=== PATIENT | female | born 1970 | race Caucasian/White ===

== ENCOUNTER 2016-12-01 21:00 | Emergency (ER) | payer OTHER ==
[~2016-12-01] VITALS: Ht 165.1 cm; Wt 120.7 kg
[~2016-12-01 21:00] MED LIST: METF-200 PO
[2016-12-01 21:05] VITALS: BP 172/98; PULSE 72; RESP 18; TEMP 98.5; O2SAT 98; Ht 165.1 cm; Wt 120.7 kg
--- OUTSIDE RECORDS SUMMARY | 2016-12-01 21:10 | XMS REPORT | Continuity of Care Document ---
[facility] Address Unknown Phone Unavailable Allergies Active Description Code Type Severity Reaction Onset Reported/Identified Relationship to Patient Clinical Status Yes No Known Drug Allergies [id number] Drug Allergy Unknown N/ A 02/27/2014 Yes Penicillins [id number] Drug Allergy Unknown N/A 09/08/2014 Medications Problems Date Dx Coded Attending Type Code Diagnosis Diagnosed By 02/27/2014 NAKUL BURRELL MD Ot 786.50 CHEST PAIN NOS 02/27/2014 NAKUL BURRELL MD Ot 786.59 CHEST PAIN NEC 09/08/2014 SABINA POWELL DO Ot 250.02 DIAB BRIAN WO COMPL, TYPE II OR UNSPEC TY 09/08/2014 SABINA POWELL DO Ot 780.4 DIZZINESS AND GIDDINESS 09/19/2014 HOSSEIN CARR DO Ot 719.46 JOINT PAIN-L/LEG 11/22/2016 HOSSEIN CARR DO Ot G58.8 OTHER SPECIFIED MONONEUROPATHIES 11/22/2016 HOSSEIN CARR DO Ot M19.031 PRIMARY OSTEOARTHRITIS, RIGHT WRIST 11/22/2016 HOSSEIN CARR DO Ot M25.531 PAIN IN RIGHT WRIST 11/22/2016 HOSSEIN CARR DO Ot M79.641 PAIN IN RIGHT HAND 11/27/2016 HOSSEIN CARR DO Ot G58.8 OTHER SPECIFIED MONONEUROPATHIES 11/27/2016 HOSSEIN CARR DO Ot M19.031 PRIMARY OSTEOARTHRITIS, RIGHT WRIST 11/27/2016 HOSSEIN CARR DO Ot M25.531 PAIN IN RIGHT WRIST 11/27/2016 HOSSEIN CARR DO Ot M79.641 PAIN IN RIGHT HAND 11/29/2016 HOSSEIN CARR DO Ot G58.8 OTHER SPECIFIED MONONEUROPATHIES 11/29/2016 HOSSEIN CARR DO Ot M19.031 PRIMARY OSTEOARTHRITIS, RIGHT WRIST 11/29/2016 HOSSEIN CARR DO Ot M25.531 PAIN IN RIGHT WRIST 11/29/2016 HOSSEIN CARR DO, Ot M79.641 PAIN IN RIGHT HAND Procedures Results Test Result Range Complete blood count (CBC) with automated white blood cell (WBC) differential - 11/22/16 08:10 Blood automated leukocyte count 7.72 4.0 -11.0 Erythrocytes 4.73 4.00-5.00 12.0-16.0;g/dL 13.4 12.0-15.5 Hematocrit 38.20 35.00-45.00 Automated erythrocyte mean corpuscular volume 81 80-100 Mean corpuscular hemoglobin (MCH) determination 28.3 26.0-34.0 Automated erythrocyte mean corpuscular hemoglobin concentration measurement ( mass/volume) 35.1 31.0-37.0 Erythrocyte distribution width 13.5 11.8 -15.6 Automated blood platelet count 260 150- 450 Automated blood platelet mean volume measurement 9.0 6.0-9.5 Automated neutrophil percentage 64 51- 67 Lymphocytes/100 leukocytes 27 20-46 Automated monocyte percentage 8 3-11 Eosinophil count auto 1 0-4 Automated basophil percentage 0 0-2 Automated blood neutrophil count 5.0 Blood lymphocytes count (number/volume) 2.1 Automated blood monocyte count 0.6 Blood absolute eosinophil count 0.1 Basophils 0.0 Comprehensive metabolic panel - 11/22/16 08:10 Sodium measurement 277 70-110 CARBON DIOXIDE 25 22-29 Serum or plasma anion gap 11.5 3-15 BLOOD UREA NITROGEN 13 7-18 CREATININE SERUM 0.52 0.6-1.2 Brucella species antibody panel (IgG, IgM) 25 10-20 Estimated glomerular filtration rate (GFR) 155.0 Estimated glomerular filtration rate (GFR) non- 128.1 OSMOLALITY,CALCULATED 277 280-300 CALCIUM 9.0 8.8-10.8 Calculated ionized calcium measurement 3.8 3.8-4.6 BILIRUBIN,TOTAL 1.0 0.1-1.0 Serum or plasma alkaline phosphatase measurement 129 38-126 ASPARTATE AMINO TRANSFERASE 17 15-37 ALANINE AMINOTRANSFERASE 33 30-65 Serum or plasma total protein measurement 7.6 6.4-8.5 Serum or plasma albumin measurement 3.7 3.4-5.0 Serum or plasma albumin/globulin mass ratio 0.948 1.1-1.8 URIC ACID - 11/22/16 08:10 URIC ACID 4.5 2.6-5.6 C REACTIVE PROTEIN* - 11/22/16 08:10 C REACTIVE PROTEIN* 1.60 0.0-0.9 Serum or plasma rheumatoid factor measurement (units/volume) - 11/22/16 08:10 Serum or plasma rheumatoid factor measurement (units/volume) < 0-29 Encounters ACCT No. Visit Date/Time Discharge Status Pt. Type Provider Facility Loc./Unit Complaint [id number] 11/22/2016 07:37:00 2016 09:35:00 DIS Outpatient [facility] ED [id number] 09/19/2014 15:30:00 2013 17:25:00 DIS Emergency [facility] ED [id number] 09/08/2014 07:06:00 2013 08:37:00 DIS Emergency ANDRE SMITH [facility] ED [id number] 02/27/2014 18:51:00 2013 22:36:00 DIS Emergency ASHANTI STRINGER, [facility] ED
--- OUTSIDE RECORDS SUMMARY | 2016-12-01 21:10 | XMS REPORT | CCD ---
Author Author SREEKANTH MEYERS Organization Unknown Address [address], [place] [id number] Phone 0 Care Team Providers Care Enterprise Resource Planner Name Role Phone JOHN RASCON Attending Physician [phone] Vital Signs Unknown or Not Available. Allergies Allergy Code Allergy Type Reaction Status No Known Drug Allergies 0 No known drug allergies Active Procedures Unknown or Not Available. History of Immunizations Unknown or Not Available. Problems Unknown or Not Available. Results COMP METABOLIC - Collect Date/Time: 09/06/2015 08:20 Test Name Code Test Result Test Units Test Ref Range GLUCOSE 166 mg/dL L=70 H=110 BUN 11 mg/dL L=7 H=18 CREATININE 0.70 mg/ dL L=0.60 H=1.30 AGE 45 YEARS GFR 97.1 SODIUM 135 mmol/L L=136 H=145 POTASSIUM 4.0 mmol/ L L=3.5 H=5.1 CHLORIDE 101 mmol/L L=98 H=107 CO2 27 mmol/L L=21 H=32 CALCIUM 8.9 mg/dL L=8.5 H=10.1 AST 9 U/L L=15 H=37 ALT 26 U/L L=12 H=78 ALKALINE PHOS 109 U/ L L=50 H=136 TOTAL PROTEIN 7.9 g/ dL L=6.4 H=8.2 ALBUMIN 3.4 g/dL L=3.4 H=5.0 TOTAL BILI 0.70 mg/ dL L=0.00 H=1.00 LIPID PANEL - Collect Date/Time: 09/06/2015 08:20 Test Name Code Test Result Test Units Test Ref Range CHOLESTEROL 188 mg/ dL L=0 H=200 TRIGLYCERIDES 154 mg /dL L=30 H=150 HDL 33 mg/dL L=50 H=60 LDL, CALC 124 mg/dL L=0 H=100 VLDL 31 mg/dL L=0 H=40 CHOL/HDL RISK 5.7 RATIO L=0.0 H=4.4 PT FASTING: YES N/A Active Medications Unknown or Not Available. Medications Administered During Visit Unknown or Not Available. Encounters Unknown or Not Available. Social History Smoking Status Code Start Date End Date Former smoker [id number] Patient Decision Aids Unknown or Not Available. Discharge Instructions You were admitted to [facility] on 09/06/2015. You were discharged from [facility] on 09/06/2015. Should you have any questions prior to discharge, please contact a member of your healthcare team. If you have left the hospital and have any questions, please contact your primary care physician. Chief Complaint and Reason For Visit Unknown or Not Available. Function Status Unknown or Not Available. Plan of Care Unknown or Not Available. Referral/Transition of Care Unknown or Not Available.
--- OUTSIDE RECORDS SUMMARY | 2016-12-01 21:10 | XMS REPORT | CCD ---
Author Author SREEKANTH MEYERS Organization Unknown Address [address], [place] [id number] Phone 0 Care Team Providers Care Brim And Crown Presser Name Role Phone JOHN RASCON Attending Physician [phone] Vital Signs Unknown or Not Available. Allergies Allergy Code Allergy Type Reaction Status No Known Drug Allergies 0 No known drug allergies Active Procedures Unknown or Not Available. History of Immunizations Unknown or Not Available. Problems Unknown or Not Available. Results HGB A1C - Collect Date/Time: 12/07/2015 14:10 Test Name Code Test Result Test Units Test Ref Range HGB A1C 6.1 % L=4.5 H=6.2 eAG 128 mg/dL Active Medications Unknown or Not Available. Medications Administered During Visit Unknown or Not Available. Encounters Encounter Diagnosis Diagnosis Code Start Date Type 2 diabetes mellitus with hyperglycemia E1165 12/07/2015 Social History Smoking Status Code Start Date End Date Former smoker [id number] Patient Decision Aids Unknown or Not Available. Discharge Instructions You were admitted to [facility] on 12/07/2015 14:05 with a principal diagnosis of Type 2 diabetes mellitus with hyperglycemia You had the following tests done: HGB A1C You were discharged from [facility] on 12/07/2015 14:05 Should you have any questions prior to discharge, please contact a member of your healthcare team. If you have left the hospital and have any questions, please contact your primary care physician. Chief Complaint and Reason For Visit Chief Complaint Date of Onset LAB Function Status Unknown or Not Available. Plan of Care Unknown or Not Available. Referral/Transition of Care Unknown or Not Available.
--- OUTSIDE RECORDS SUMMARY | 2016-12-01 21:10 | XMS REPORT | CCD ---
Author Author SREEKANTH MEYERS Organization Unknown Address [address] [place], [place] [address] Phone 0 Care Team Providers Care Ui Application Developer Name Role Phone KELLIE CHERRY Attending Physician 0 Vital Signs Unknown or Not Available. Allergies Allergy Code Allergy Type Reaction Status No Known Drug Allergies 0 No known drug allergies Active Procedures Unknown or Not Available. History of Immunizations Unknown or Not Available. Problems Unknown or Not Available. Results BASIC METABOLIC - Collect Date/Time: 02/22/2016 10:38 Test Name Code Test Result Test Units Test Ref Range GLUCOSE 197 mg/dL L=70 H=110 BUN 12 mg/dL L=7 H=18 CREATININE 0.71 mg/ dL L=0.60 H=1.30 AGE 45 YEARS GFR 89.8 SODIUM 135 mmol/L L=136 H=145 POTASSIUM 3.8 mmol/ L L=3.5 H=5.1 CHLORIDE 101 mmol/L L=98 H=107 CO2 27 mmol/L L=21 H=32 CALCIUM 9.0 mg/dL L=8.5 H=10.1 HGB A1C - Collect Date/Time: 02/22/2016 10:38 Test Name Code Test Result Test Units Test Ref Range HGB A1C 7.4 % L=4.5 H=6.2 eAG 166 mg/dL H. PYLORI IGG, RAPID - Collect Date/Time: 02/22/2016 10:38 Test Name Code Test Result Test Units Test Ref Range H. PYLORI IGG, RAPID NEGATIVE N/A NORMAL: NEGATIVE UA AUTO W/ MICRO - Collect Date/Time: 02/22/2016 10:40 Test Name Code Test Result Test Units Test Ref Range COLOR Yellow N/A NORMAL: Yellow APPEARANCE SlCloudy N/A NORMAL: Clear GLUCOSE 250 N/A NORMAL: Negative BILIRUBIN Negative N /A NORMAL: Negative KETONE Negative N/A NORMAL: Negative SPEC GRAVITY >=1.030 N/A NORMAL: 1.005-1.030 BLOOD Small N/A NORMAL: Negative PROTEIN 30 N/A NORMAL: Negative PH 5.0 N/A NORMAL: 5.0-8.0 UROBILINOGEN 0.2 N/ A NORMAL: Negative NITRITE Negative N/ A NORMAL: Negative LEUKOCYTES Negative N/A NORMAL: Negative MICRO RBC 2-5 N/A NORMAL: 0-2 MICRO WBC 5-10 N/A NORMAL: 0-2 BACTERIA 1+ N/A NORMAL: None-Trace EPI CELLS 15-30 N/A NORMAL: 0-15 MUCUS Small N/A NORMAL: None-Small AMORPHOUS None Seen N/A NORMAL: None Seen YEAST None Seen N/A NORMAL: None Seen CRYSTALS None Seen N /A NORMAL: None Seen CAST Hyaline C N/A NORMAL: None Seen URINE CULTURE? YES N /A CULTURE URINE - Collect Date/Time: 02/22/2016 10:40 Test Name Code Test Result Test Units Test Ref Range SPEC SOURCE: R N/A Urine Culture, Routine 630-4 Final report N/A Active Medications Unknown or Not Available. Medications Administered During Visit Unknown or Not Available. Encounters Encounter Diagnosis Diagnosis Code Start Date Type 2 diabetes mellitus without complications E119 02/22/2016 Social History Smoking Status Code Start Date End Date Former smoker [id number] Patient Decision Aids Unknown or Not Available. Discharge Instructions You were admitted to [facility] on 02/22/2016 10:30 with a principal diagnosis of Type 2 diabetes mellitus without complications You had the following tests done: BASIC METABOLIC CULTURE URINE H. PYLORI IGG, RAPID HGB A1C UA AUTO W/ MICRO You were discharged from [facility] on 02/22/2016 10:30 Should you have any questions prior to [...]
--- OUTSIDE RECORDS SUMMARY | 2016-12-01 21:10 | XMS REPORT | CCD ---
Author Author SREEKANTH MEYERS Organization Unknown Address [address], [place] [address] Phone 0 Care Team Providers Care Computer Meteorologist Name Role Phone JOHN RASCON Attending Physician [phone] Vital Signs Unknown or Not Available. Allergies Allergy Code Allergy Type Reaction Status No Known Drug Allergies 0 No known drug allergies Active Procedures Unknown or Not Available. History of Immunizations Unknown or Not Available. Problems Unknown or Not Available. Results COMP METABOLIC - Collect Date/Time: 03/07/2016 09:24 Test Name Code Test Result Test Units Test Ref Range GLUCOSE 212 mg/dL L=70 H=110 BUN 13 mg/dL L=7 H=18 CREATININE 0.70 mg/ dL L=0.60 H=1.30 AGE 45 YEARS GFR 91.3 SODIUM 135 mmol/L L=136 H=145 POTASSIUM 4.1 mmol/ L L=3.5 H=5.1 CHLORIDE 99 mmol/L L=98 H=107 CO2 26 mmol/L L=21 H=32 CALCIUM 9.0 mg/dL L=8.5 H=10.1 AST 15 U/L L=15 H=37 ALT 32 U/L L=12 H=78 ALKALINE PHOS 118 U/ L L=50 H=136 TOTAL PROTEIN 7.8 g/ dL L=6.4 H=8.2 ALBUMIN 3.1 g/dL L=3.4 H=5.0 TOTAL BILI 0.60 mg/ dL L=0.00 H=1.00 LIPID PANEL - Collect Date/Time: 03/07/2016 09:24 Test Name Code Test Result Test Units Test Ref Range CHOLESTEROL 190 mg/ dL L=0 H=200 TRIGLYCERIDES 111 mg /dL L=30 H=150 HDL 39 mg/dL L=50 H=60 LDL, CALC 129 mg/dL L=0 H=100 VLDL 22 mg/dL L=0 H=40 CHOL/HDL RISK 4.9 RATIO L=0.0 H=4.4 PT FASTING: YES N/A Active Medications Unknown or Not Available. Medications Administered During Visit Unknown or Not Available. Encounters Encounter Diagnosis Diagnosis Code Start Date Type 2 diabetes mellitus with hyperglycemia E1165 03/07/2016 Social History Smoking Status Code Start Date End Date Former smoker [id number] Patient Decision Aids Unknown or Not Available. Discharge Instructions You were admitted to [facility] on 03/07/2016 09:18 with a principal diagnosis of Type 2 diabetes mellitus with hyperglycemia You had the following tests done: COMP METABOLIC LIPID PANEL You were discharged from [facility] on 03/07/2016 09:18 Should you have any questions prior to [...]
--- OUTSIDE RECORDS SUMMARY | 2016-12-01 21:11 | XMS REPORT | Continuity of Care Document ---
Author Author [facility] Address Unknown Phone Unavailable Care Team Providers Care Facilities Plant Engineer Name Role Phone Enrrique Moralez Richard Primary Care Physician [phone] Insurance Providers Payer Name Policy Number Subscriber Name Relationship [facility] [id number] En Vasques 18 Self / Same As Patient Advance Directives Directive Response Recorded Date/Time Advanced Directives No 11/22/16 7:39am Chief Complaint and Reason for Visit Chief Complaint Pain Reason for Visit [id number] Neuritis of right ulnar nerve Problems Active Problems Medical Problem Onset Date Status Chest pain ~02/27/2014 Resolved Diabetes mellitus Unknown Chronic Dizzy Unknown Resolved Knee pain ~09/19/2014 Acute Neuritis of right ulnar nerve Unknown Acute Patellofemoral arthralgia of right knee ~09/19/2014 Acute Right wrist tendinitis Unknown Acute Vertigo Unknown Resolved Medications Current Home Medications Medication Dose Units Route Directions Days/Qty Instructions Start Date Naproxen Sodium 220 Mg 220 Mg ORAL As Needed 09/19/14 Meloxicam 15 Mg 15 Mg ORAL Daily 10 11/22/16 Past Home Medications Medication Directions Ordered Status Metformin Hcl (Glucophage) 500 Mg Tablet, 500 Mg Oral Twice A Day 02/27/14 Discontinued Meloxicam 15 Mg Tablet, 15 Mg Oral Daily 02/27/14 Discontinued Fluoxetine Hcl 20 Mg Capsule, 20 Mg Oral Daily 02/27/14 Discontinued Trazodone Hcl 50 Mg Tablet, 50 Mg Oral Bedtime 02/27/14 Discontinued Cetirizine Hcl 10 Mg Tab.chew, 10 Mg Oral Daily 02/27/14 Discontinued Omeprazole 10 Mg Capsule.dr, 10 Mg Oral Daily 02/27/14 Discontinued Ranitidine Hcl 150 Mg Tablet, 150 Mg Oral Bedtime 02/27/14 Discontinued Meclizine Hcl 25 Mg Tab.chew, 25 Mg Oral Three Times A Day 09/08/14 Discontinued Prednisone 20 Mg Tablet, 3 Tab Oral Daily 09/08/14 Discontinued Metformin Hcl (Glucophage) 500 Mg Tablet, 500 Mg Oral Twice A Day 09/08/14 Discontinued Tramadol Hcl (Ultram) 50 Mg Tablet, 50 Mg Oral Every 6 Hours as needed for Pain 09/19/14 Discontinued Social History Query Response Start Date Stop Date Smoking Status Former smoker Hospital Discharge Instructions No hospital discharge instructions. Plan of Care Discharge Date 11/22/16 9:35am Disposition 01 HOME OR SELF-CARE Condition at Discharge Stable Instructions/Education Provided Meloxicam Tendinopathy (DC) Forms Provided Return to Work Restrictions Prescriptions See Medication Section Referrals Enrrique Moralez - Additional Instructions/Education Wear the wrist splint for a few days as needed to protect and rest your right wrist, and after your pain has improved, you may try going without it. You may try wearing it to work to protect and support your wrist. The pain in your right fifth finger may be related to compression and inflammation of the ulnar nerve as it passes through your elbow, and may not improve with wearing a wrist splint. It may help to try to avoid applying any pressure to the right elbow, and even wearing a bulky pad over the elbow like a housing grant analyst's elbow pad which you could probably obtain at any sporting goods store. You are also being prescribed an anti-inflammatory medication to take for the next week. Follow-up with your doctor in the next week if you're not improving. You may need nerve conduction studies of the right ulnar nerve to see if it needs surgery. Some of your test results may not be complete prior to your leaving the Emergency Department. The Emergency Department is not authorized to give test results over the phone. Please contact the doctor's office listed in this packet of information for your final results. Follow up with your primary care physician or return to the Emergency Department for worsening or worrisome symptoms. * Emergency Department phone number: [phone], x [phone]* MEDICAL RECORD If you need copies of your X-rays, call [phone]. If you need copies of your medical record, including lab results, a signed authorization for release of records will be required. A telephone call for release of Health Information is not allowed. BILLING Billing can sometimes be confusing and frustrating. To help avoid confusion in the future, please take a moment to acquaint yourself with the billing parties for services. SERVICE BILLING [facility] Emergency Room Services [facility] Physician Services [facility] X-rays [facility] Patients will receive bills for services from the appropriate provider. If you have any questions about your [facility] bill, our staff will be happy to assist you. Please call [phone], and ask for the billing department. THANK YOU for choosing [facility] as your emergency care provider! Care Plan and Goals ~~Discharge Care Plan~~ Problem: Sprain, strain or fracture of extremity Goal: Extremity will be pink and warm to touch, with good movement of fingers or toes. Instructions: Apply ice bag and elevate extremity above the level of your heart. Monitor extremity for pink color to fingers or toes and movement. Call your physician if extremity becomes blue in color or cool to touch. Some swelling of fingers or toes is expected, continue to wiggle fingers and toes and keep elevated. Allow 24-48 hours for the splint to dry completely. Do not place splint on a hard surface to avoid a pressure area. Take medication(s) as directed. Follow up with Orthopedic or primary care physician as directed. Functional Status No functional status results. Allergies, Adverse Reactions, Alerts Allergen Type Severity Reaction Status Last Updated Penicillin Allergy Unknown Active 09/08/14 Immunizations Name Given Type Status Date Influenza Vaccine Received if Current 06/15/14 Historical Historical Vital Signs Acute Vital Signs Vital Response Date/Time Temperature (Fahrenheit) 97.7 11/22/2016 7:39am Pulse 72 bpm 11/22/2016 10:01am Respirations 16 11/22/2016 10:01am Height 5 ft 5 in Weight 262 lb Body Mass Index 43.0 kg/m^2 Results Laboratory Results Test Name Result Units Flags Reference Collection Date/Time Result Date/ Time Comments White Blood Count 7.72 10^3uL 4.0-11.0 11/22/2016 8:11/22/2016 8: 28am Red Blood Count 4.73 10^6uL 4.00-5.00 11/22/2016 8:11/22/2016 8: 28am Hemoglobin 13.4 g/dL 12.0-15.5 11/22/2016 8:11/22/2016 8:28am Hematocrit 38.20 % 35.00-45.00 11/22/2016 8:11/22/2016 8:28am Mean Corpuscular Volume 81 FL 80-100 11/22/2016 8:11/22/2016 8: 28am Mean Corpuscular Hemoglobin 28.3 PG 26.0-34.0 11/22/2016 8:2016 8:28am Mean Corpuscular Hemoglobin Concent 35.1 g/dL 31.0-37.0 11/22/2016 8: 11/22/2016 8:28am Red Cell Distribution Width 13.5 % 11.8-15.6 11/22/2016 8:2016 8:28am Platelet Count 260 10^3uL 150-450 11/22/2016 8:11/22/2016 8:28am Mean Platelet Volume 9.0 FL 6.0-9.5 11/22/2016 8:11/22/2016 8: 28am Neutrophils (%) (Auto) 64 % 51-67 11/22/2016 8:11/22/2016 8:28am Lymphocytes (%) (Auto) 27 % 20-46 11/22/2016 8:11/22/2016 8:28am Monocytes (%) (Auto) 8 % 3-11 11/22/2016 8:11/22/2016 8:28am Eosinophils (%) (Auto) 1 % 0-4 11/22/2016 8:10a11/22/2016 8:28am Basophils (%) (Auto) 0 % 0-2 11/22/2016 8:11/22/2016 8:28am Neutrophils # (Auto) 5.0 X10^3 11/22/2016 8:10a11/22/2016 8:28am Lymphocytes # (Auto) 2.1 X10^3 11/22/2016 8:11/22/2016 8:28am Monocytes # (Auto) 0.6 X10^3 11/22/2016 8:10a11/22/2016 8:28am Eosinophils # (Auto) 0.1 10^3uL 11/22/2016 8:10a11/22/2016 8:28am Basophils # (Auto) 0.0 10^3uL 11/22/2016 8:10a11/22/2016 8:28am Sodium Level 138 mmol/L 135-150 11/22/2016 8:10a11/22/2016 8:36am Potassium Level 4.0 mmol/L 3.5-5.1 11/22/2016 8:10a11/22/2016 8:36am Chloride Level 105 mmol/L 98-108 11/22/2016 8:10a11/22/2016 8:36am Carbon Dioxide Level 25 mmol/L -11/22/2016 8:10a11/22/2016 8: 36am Anion Gap 11.5 MEQ/L 3-15 11/22/2016 8:10a11/22/2016 8:36am Blood Urea Nitrogen 13 mg/dL # 7-18 11/22/2016 8:11/22/2016 8:36am Creatinine 0.52 mg/dL L 0.6-1.2 11/22/2016 8:10a11/22/2016 8:36am BUN/Creatinine Ratio 25 H 10-11/22/2016 8:10a11/22/2016 8:36am Estimat Glomerular Filtration Rate 155.0 11/22/2016 8:10a2016 8:36am Estimated GFR (Non- 128.1 11/22/2016 8:10a2016 8:36am Glucose Level 277 mg/dL # H 70-110 11/22/2016 8:11/22/2016 8:36am Calculated Osmolality 277 mosm/L L 280-300 11/22/2016 8:11/22/2016 8:36am Uric Acid 4.5 mg/dL 2.6-5.6 11/22/2016 8:11/22/2016 8:36am Calcium Level 9.0 mg/dL 8.8-10.8 11/22/2016 8:11/22/2016 8:36am Calcium/Ionized Calcium Ratio 3.8 mg/dL 3.8-4.6 11/22/2016 8:11/22 8:36am Total Bilirubin 1.0 mg/dL # 0.1-1.0 11/22/2016 8:11/22/2016 8:36am Alkaline Phosphatase 129 U/L H 38-126 11/22/2016 8:11/22/2016 8: 36am Aspartate Amino Transf (AST/SGOT) 17 U/L 15-37 11/22/2016 8:2016 8:36am Alanine Aminotransferase (ALT/SGPT) 33 U/L 30-65 11/22/2016 8: 8:36am Total Protein 7.6 g/dL 6.4-8.5 11/22/2016 8:11/22/2016 8:36am Albumin 3.7 g/dL 3.4-5.0 11/22/2016 8:11/22/2016 8:36am Albumin/Globulin Ratio 0.948 L 1.1-1.8 11/22/2016 8:11/22/2016 8: 36am C-Reactive Protein 1.60 mg/dL H 0.0-0.9 11/22/2016 8:11/22/2016 8: 36am Procedures No known history of procedures. Encounters Encounter Location Arrival/Admit Date Discharge/Depart Date Attending Provider Departed Emergency Room [facility] 11/22/16 7:37am 11/22/16 9:35am HOSSEIN CARR DO Recent Diagnosis
--- OUTSIDE RECORDS SUMMARY | 2016-12-01 21:11 | XMS REPORT | CCD ---
Author BISHOP Palm Organization Unknown Address [address], [place] [id number] Phone 0 Care Team Providers Care Punchboard Filling Machine Operator Name Role Phone Faisal COVARRUBIAS Attending Physician 0 SATISH A Primary Surgeon 0 Vital Signs Vital Sign Value Unit Date/Time Recent/Initial? Weight Measured 0 lbs 05/13/2015 19:46 Initial VS Height 65 in 2014 19:46 Initial VS BMI (Body Mass Index) 0 kg/m^2 05/13/2015 19:46 Initial VS BSA (Body Surface Area) 0 m^2 05/13/2015 19:46 Initial VS Allergies Allergy Code Allergy Type Reaction Status No Known Drug Allergies 0 No known drug allergies Active Procedures Unknown or Not Available. History of Immunizations Unknown or Not Available. Problems Unknown or Not Available. Results Unknown or Not Available. Active Medications Unknown or Not Available. Medications Administered During Visit Unknown or Not Available. Encounters Encounter Diagnosis Diagnosis Code Start Date INSECT BITE HIP & LEG 9164 05/13/2015 Social History Smoking Status Code Start Date End Date Former smoker [id number] Patient Decision Aids Unknown or Not Available. Discharge Instructions You were admitted to [facility] on 05/13/2015 with a principal diagnosis of INSECT BITE HIP & LEG. You were discharged from [facility] on 05/13/2015. Should you have any questions prior to discharge, please contact a member of your healthcare team. If you have left the hospital and have any questions, please contact your primary care physician. Chief Complaint and Reason For Visit Chief Complaint Date of Onset POSSIBLE BUG BITE LEFT LEG. 05/13/2015 Function Status Unknown or Not Available. Plan of Care Unknown or Not Available. Referral/Transition of Care Unknown or Not Available.
--- NOTE | 2016-12-01 21:36 | ERPDOC ---
Departure Disposition Decision Date: Dec 01, 2016 Disposition Decision Time: 22:00 Disposition: 01 DISCHARGED HOME, SELF-CARE Impression Impression Impression: Primary Impression: Right wrist pain Severity: Moderate Condition: Stable Seen By: Physician only Referrals: NATTY RASCON "JOHN" (Family) Follow-up for possible referral to orthopedist Patient Instructions: Carpal Tunnel Syndrome Exercises (GEN) Problems/Meds/Labs Reviewed?: Yes Medications reviewed and manag: Yes Additional Instructions: May follow-up with prior establish relationship with Dr. Ghosh Departure Forms: Return to Work/School Permit Return to Work/School Date: Dec 01, 2016 Restrictions: No lifting with right arm until cleared by M.DAishwarya Follow up care ordered?: Yes Mental Status: Alert, Oriented Scripts Hydrocodone/Apap (Comerio 5-325 Tablet) 5-325 Tablet 1-2 TAB PO Q6H Y for PAIN, #20 TAB Prov: EDITH PINEDA MD 12/01/16 HPI General Chief Complaint: Upper Extremity Pain Stated Complaint: RIGHT WRIST PAIN Time Seen by Provider: 21:35 Source: patient Exam Limitations: no limitations HPI Hand/Forearm Initial Comments Patient is a 46-year-old female presents emergent permanent for evaluation of wrist pain. Patient's had wrist pain for several weeks/months. Patient is been evaluated by 2 other physicians and diagnosed with tendinitis. Patient has been braced and started on meloxicam. Patient states these medications are not helping, she is having increased pain and not can not find any relief this evening so she decided to come to the [facility] emergency department. Occurred At: home Allergies: Coded Allergies: Penicillins (Verified Allergy, Unknown, 12/01/16) Past History Past Medical History Metabolic: diabetes Hx Echocardiogram: No GI: GERD, gallbladder disease Musculoskeletal: back pain Psychological: depression Surgical History General: appendix, colonoscopy, gallbladder, tonsils Reproductive/: Joint: knee Family History Family PMH: FOUND: [place], diabetes, hypertension Vaccines Hx Influenza Vaccination: Yes Hx Pneumococcal Vaccination: No Hx Tetanus, Diptheria, Pertuss: No Social History Tobacco Usage: none Alcohol Usage: none Drug Usage: none IV Drug Use: No Sexuality: male partner Residence: home Occupation: works an assembly line Review of Systems Constitutional Constitutional: DENIES: fever ENMT Sinuses: DENIES: congestion, rhinorrhea Cardiovascular Cardiac: DENIES: chest pain Pulmonary Respiratory: DENIES: cough GI Upper Abdomen: DENIES: pain Lower Abdomen: DENIES: pain Musculoskeletal General: see HPI Integumentary Skin: DENIES: color change, itching, rash Hematologic/Lymphatic Hematologic/Lymphatic: DENIES: anemia Exam General General Nourishment: well nourished, well developed, obese Vital Signs: RN Vital Signs have been reviewed: Yes, Temperature: 98.5, Source : Oral, Heart Rate: 72, Respiratory Rate: 18, BP: 172/98, Pulse Oximetry: 98 Height (Feet): 5 Height (Inches): 5.00 Fastrak Hand/Forearm Hand/Forearm : Upper Extremity: Right Elbow: NOT FOUND: deformity, ecchymosis, erythema, swelling Forearm: NOT FOUND: ecchymosis, erythema, swelling, tender Wrist: ROM intact, tender, NOT FOUND: deformity, ecchymosis, erythema, snuff box tenderness, swelling, thenar eminence tender Hand: NOT FOUND: ecchymosis, erythema, swelling, tender Fingers: NOT FOUND: ecchymosis, erythema, impaired abduction, impaired adduction, impaired extension, impaired flexion, impaired grasp, rotational deformity, swelling, tender Radial Pulse: 3+ Ulnar Pulse: 3+ Neurologic RN Documented GCS Eye Opening: Verbal: Motor: Total: Differential Diagnoses Considering: Carpal Tunnel Syndrome, Contusion, Sprain, Strain Progress Results/Orders Orders Medications Current ED Medications Acetaminophen/ Hydrocodone Bitart (Comerio 7.5/325) 1 tab O ONCE PO Last administered on 12/01/16 22:27; Start 12/01/16 at 22:00; Stop 12/01/16 at 22:01; Status DC Acetaminophen/ Hydrocodone Bitart (NORCO 5 (PrePack)) 1 pack O ONCE SENT HOME Last administered on 12/01/16 22:27; Start 12/01/16 at 22:15; Stop 12/01/16 at 22: 16; Status DC EDITH PINEDA MD Dec 01, 2016 21:35
[2016-12-01] MEDS ORDERED: HYDR-3989 PO (22:01)
--- OUTSIDE RECORDS SUMMARY | 2016-12-01 22:07 | XMS REPORT | Continuity of Care Document ---
Author Author [facility] Address Unknown Phone Unavailable Allergies Active Description Code Type Severity Reaction Onset Reported/Identified Relationship to Patient Clinical Status Yes No Known Drug Allergies [id number] Drug Allergy Unknown N/ A 02/27/2014 Yes Penicillins [id number] Drug Allergy Unknown N/A 09/08/2014 Medications Problems [...] Status Pt. Type Provider Facility Loc./Unit Complaint [id number] 11/22/2016 07:37:00 2016 09:35:00 DIS Outpatient [facility] ED [id number] 09/19/2014 15:30:00 2013 17:25:00 DIS Emergency [facility] ED [id number] 09/08/2014 07:06:00 2013 08:37:00 DIS Emergency ANDRE SMITH [facility] ED [id number] 02/27/2014 18:51:00 2013 22:36:00 DIS Emergency ASHANTI STRINGER, [facility] ED
[2016-12-01] MEDS ORDERED: HYDROCODONE/APAP 5/325 (PrePack) SENT HOME ONE (22:15)
--- NOTE | 2016-12-01 22:27 | NUR ---
DEPARTURE PT COLLECTED BELONGINGS AND AMBULATED INDEPENDENTLY TO EXIT WITH SIGNIFICANT OTHER, GAIT STEADY.
== END 2016-12-01 22:27 | disposition home or self-care (01) ==
LOC: ED 21:00
DX: M25.531 Pain in right wrist (principal)